=== PATIENT | female | born 1960 | race Caucasian/White ===

== ENCOUNTER 2016-06-23 19:49 | Emergency (ER) ==
[2016-06-23] MEDS ORDERED: ASPIRIN PO STA (19:54)
[2016-06-23] MEDS ORDERED: NITROGLYCERIN SL PRN (19:54)
--- NOTE | 2016-06-23 20:14 | PROVIDER DOCUMENTATION ---
HPI-Musculoskeletal Pain/Inj <Corey Ge - Last Filed: 06/23/16 21:37> - GENERAL Source: patient - HX OF PRESENT ILLNESS-MUSKULOSKELTAL Quality of Pain: reports: aching, cramping, sharp Severity in ED: moderate Onset/Duration: just prior to arrival Timing: still present, improving - TRUNK INJURY Location of Injury(s)/Pain: reports: chest, ribs Context / Method of Injury: reports: recent physical stress Associated Symptoms: reports: chest pain, shortness of breath, pain with breathing. denies: anxiety, arm pain, back/neck pain, nausea/vomiting, sensory/ motor loss <Samy Rey - Last Filed: 06/23/16 21:43> - GENERAL Chief Complaint: Rib Pain Stated Complaint: "chest pain" heard pop under left breast Time Seen by Provider: 06/23/16 20:01 - HX OF PRESENT ILLNESS-MUSKULOSKELTAL Nature of Presenting Problem: Pt is a 56 yof who presents to ER via EMS with CC of difficulty breathing, secondary to rib pain. Pt reports that she was at home, [employer] [place], bending over to take off socks when she "turned weirdly" and felt a popping sensation on the L side of her chest, and immediately developed difficulty breathing. Pt now complains of painful deep inspirations, chest tenderness on palpation (central to L side anteriorly). Pt reports hx of rheumatoid arthritis. EMS gave pt 100micrograms od fentanyl prior to arrival. (Samy Rey) Review of Systems - Adult - REVIEW OF SYSTEMS - ADULT Constitutional: denies: chills, fever, fatique, night sweats, weight gain, weight loss Eyes: reports: no symptoms reported Ears, Nose, Mouth & Throat: reports: no symptoms reported Cardiovascular: reports: chest pain. denies: edema, heart murmur, irregular heart rate, orthopnea, palpitations, poor circulation, PND, syncope Respiratory: reports: chronic cough, dyspnea on exertion, shortness of breath. denies: cough, excessive sputum production, hemoptysis, pleurisy, wheezing Gastrointestinal: reports: no symptoms reported Genitourinary: reports: no symptoms reported Musculoskeletal: reports: muscle aches. denies: bone pain, back pain, frequent leg cramps, joint pain, joint swelling, muscle weakness, neck pain Integumentary: reports: no symptoms reported Neurological: reports: slurred speech (mildly). denies: ataxia, dizziness/ vertigo, headache/migraines, loss of balance, numbness, paresthesia, seizure, syncope, tremors Psychiatric: reports: no symptoms reported Endocrine: reports: no symptoms reported Hematologic/Lymphatic: reports: no symptoms reported Allergic/Immunologic: reports: no symptoms reported All Other Systems: Reviewed and Negative <Samy Rey - Last Filed: 06/23/16 21:43> Past History - Adult - PAST MEDICAL HISTORY-ADULT Review of Records: reports: Nursing Assessment Review, Medications Reviewed - IMMUNIZATION STATUS Childhood Immunizations: See Nurse Assessment Flu Vaccine: See Nurse Assessment <Samy Rey - Last Filed: 06/23/16 21:43> Physical Exam-Injury Related - Physical Exam-Injury Related Initial Vital Signs Reviewed: Yes General Appearance: appears well, alert, mild distress, anxious, lethargic. negative: no apparent distress, moderate distress, severe distress, cachetic, obese, thin, slow to respond, obtunded, combative Respiratory: chest non-tender, lungs clear, normal breath sounds, rib tenderness (L anterior). negative: respiratory distress, decreased breath sounds, accessory muscle use, wheezing, pain on inspiration (deep inspiration) Cardiovascular: normal peripheral pulses, regular rate, rhythm. negative: bradycardia, tachycardia Chest/Breast: no masses/lumps, tenderness (L anterior chest pain on palpation). negative: no tenderness Abdominal Exam: normal bowel sounds, non tender, soft, no organomegaly, no pulsatile mass. negative: abnormal bowel sounds, distended, tenderness Back Exam: no CVA tenderness, no vertebral tenderness. negative: CVA tenderness , decreased range of motion, vertebral tenderness Extremity: normal range of motion, non-tender, normal gait. negative: deformity , erythema, inflammation, swelling, tenderness Neurologic: grossly normal, no motor/sensory deficits. negative: facial droop, focal weakness, motor weakness, sensory deficit Psych/Mental Status: normal thought content, normal thought process, oriented x 3, disheveled, depressed affect. negative: normal mood/affect <Samy Rey - Last Filed: 06/23/16 21:43> Progress - REASSESSMENT Reassessment #1 Time Reassessed: 21:37 (pt w/hx ra who came to er w/24 hrs ant natalie pain and tender ness of sternum //pt got fentanyl by ems ...upset about her pcp cut her of the norco 10 mg ...) Status: improving <Corey Ge - Last Filed: 06/23/16 21:37> - EKG 1 Time of EKG reading by physician:: 20:36 EKG Read and Signed by:: Corey Ge EKG Interpretation (*Must complete 3 of following elements*): Abnormal (Minimal voltage criteria for LVH, may be normal variant) Rate: 64 Rhythm: Sinus rhythm with PAC - XRAY 1 XRAY: Bilateral XRAY Study: Chest (COPD changes; Borderline cardiomegaly; Flat diaphragm; No obvious fx; Very small amounht of fluid in L costophrenic angle.) Impression: See EMR Report XRAY Interpretation: See report <Samy Rey - Last Filed: 06/23/16 21:43> - PLAN OF CARE/RESULTS Progress/Plan/Lab Results: POC: X-ray Vital Signs - 24 hr 06/23/16 06/23/16 20:03 21:02 Temperature 98.2 F Pulse Rate 68 85 Respiratory 16 20 Rate Blood Pressure 160/102 177/95 O2 Sat by Pulse 94 L 96 Oximetry Orders Category Date Time Status Cardiac Monitoring DIRECTED Care 06/23/16 19:54 Active Saline Loc NOW Care 06/23/16 19:54 Active CHEST-2 VIEWS [RAD] Stat Exams 06/23/16 19:54 Taken CBC WITH ELECTRONIC DIFF [HEME] Stat Lab 06/23/16 20:24 Completed CK PROFILE [SP CHEM] Stat Lab 06/23/16 20:24 Completed COMPREHENSIVE METABOLIC PANEL [CHEM] Stat Lab 06/23/16 20:24 Completed D-DIMER [CHEM] Stat Lab 06/23/16 20:24 Completed MAGNESIUM [CHEM] Stat Lab 06/23/16 20:24 Completed PRO B-NATRIURETIC PEPTIDE Stat Lab 06/23/16 20:24 Completed PROTIME WITH INR [COAG] Stat Lab 06/23/16 20:24 Completed PTT [COAG] Stat Lab 06/23/16 20:24 Completed TROPONIN T Stat Lab 06/23/16 20:24 Completed Aspirin Med 06/23/16 19:54 Discontinued 325 mg PO STAT STA Dexamethasone [Decadron] Med 06/23/16 21:41 Discontinued 10 mg IV NOW ONE Furosemide [Lasix] Med 06/23/16 20:26 Discontinued 40 mg IV NOW ONE Ketorolac [Toradol] Med 06/23/16 21:41 Discontinued 30 mg IV NOW ONE Nitroglycerin Sl [Nitroglycerin] Med 06/23/16 19:54 Active 0.4 mg SL Q5M PRN PRN Oxycodone/APAP 10 mg/325 mg [Percocet-10] Med 06/23/16 21:41 Discontinued 1 each PO NOW ONE EKG [EKG] Stat Ther 06/23/16 19:54 Ordered Laboratory Tests 06/23/16 06/23/16 06/23/16 20:24 20:24 20:24 WBC 3.33 L RBC 3.68 L Hgb 11.6 L Hct 35.9 L MCV 97.6 MCH 31.5 H MCHC 32.3 L RDW Std Deviation 15.8 H Plt Count 270 MPV 9.0 Immature Gran % (Auto) 0.0 Neut % (Auto) 44.8 Lymph % (Auto) 45.3 Roane % (Auto) 8.1 Eos % (Auto) 0.9 Baso % (Auto) 0.9 H Immature Gran # (Auto) 0.00 Neut # (Auto) 1.49 Lymph # (Auto) 1.51 Roane # (Auto) 0.27 Eos # (Auto) 0.03 Baso # (Auto) 0.03 PT INR PTT (Actin FS) D-Dimer 0.39 Sodium 139 Potassium 4.1 Chloride 100 Carbon Dioxide 28 Anion Gap 11 BUN 10 Creatinine 0.7 Estimated GFR/1.73 m2 > 60 BUN/Creatinine Ratio 14 Glucose 83 Calculated Osmolality 276 Calcium 8.7 L Magnesium 2.0 Total Bilirubin 0.40 AST 12 ALT 9 L Alkaline Phosphatase 115 H Creatine Kinase 54 Troponin T [id number] Pept Total Protein 8.2 Albumin 3.6 Globulin 4.6 Albumin/Globulin Ratio 0.8 06/23/16 06/23/16 06/23/16 20:24 20:24 20:24 WBC RBC Hgb Hct MCV MCH MCHC RDW Std Deviation Plt Count MPV Immature Gran % (Auto) Neut % (Auto) Lymph % (Auto) Roane % (Auto) Eos % (Auto) Baso % (Auto) Immature Gran # (Auto) Neut # (Auto) Lymph # (Auto) Roane # (Auto) Eos # (Auto) Baso # (Auto) PT 11.3 INR 1.07 PTT (Actin FS) 26.1 D-Dimer Sodium Potassium Chloride Carbon Dioxide Anion Gap BUN Creatinine Estimated GFR/1.73 m2 BUN/Creatinine Ratio Glucose Calculated Osmolality Calcium Magnesium Total Bilirubin AST ALT Alkaline Phosphatase Creatine Kinase Troponin T < 0.010 [id number] Pept 402 H Total Protein Albumin Globulin Albumin/Globulin Ratio (Samy Rey) Departure - Departure Time of Disposition Order: 21:39 Certified Medical Emergency: Emergent <Corey Ge - Last Filed: 06/23/16 21:37> - Departure Time of Disposition Order: 21:43 Certified Medical Emergency: Emergent <Samy Rey - Last Filed: 06/23/16 21:43> - Departure DIAGNOSIS: Anterior chest wall pain COPD (chronic obstructive pulmonary disease) Qualifiers: COPD type: unspecified COPD Qualified Code(s): J44.9 - Chronic obstructive pulmonary disease, unspecified Disposition: HOME 01 Condition: Stable Additional Instructions: ED Follow Up Instructions:see pcp for pain control You have been treated by a care provider in the Emergency Department. These instructions are being provided to you so you can have an understanding of how to care for yourself upon discharge. Upon discharge from the Emergency Department, you are responsible for making arrangements for follow-up care by a physician of your choice. Take all prescribed medications as directed. Return to the Emergency Department immediately for any new or worsening symptoms. You may call the Physician Referral phone number at [phone] to obtain a list of Physicians who are taking new patients. Prescriptions: Methylprednisolone [Medrol Dosepak] 4 mg PO DIRECTED #1 package Tramadol [Ultram] 50 mg PO TID #30 tablet Azithromycin [Zithromax Z-Timothy] 250 mg PO DIRECTED #1 pkg Referrals: Gregory Vuong MD [Primary Care Provider] - Attestation - Scribe Verification/Attestation Scribe:: Samy Rey Acting as Scribe for:: Corey Ge Scribe documention review:: This chart was documented by a scribe and accurately reflects the service the provider performed and the decisions made by the provider. <Samy Rey - Last Filed: 06/23/16 21:43> Physician Attestation
[2016-06-23] MEDS ORDERED: LASIX IV ONE (20:26)
[2016-06-23 20:35] LABS: MANUAL DIFF NEEDED? NO
[2016-06-23 20:38] LABS: BASO% 0.9 % (0.0-0.8); EOS# 0.03 X1000 (0.0-0.7); EOS% 0.9 % (0.0-10.0); HEMATOCRIT 35.9 % (37.0-47.0); HEMOGLOBIN 11.6 g/dL (12.0-16.0); LYMPH# 1.51 X1000 (1.2-3.4); LYMPH% 45.3 % (20.5-51.1); MCH 31.5 PG (27-31); MCHC 32.3 g/dL (33-37); MCV 97.6 FL (81-99); MONO# 0.27 X1000 (0.11-0.59); MONO% 8.1 % (1.7-9.3); NEUT% 44.8 % (42.2-75.2); PLT 270 X1000 (130-400); RBC 3.68 XMIL (4.2-5.4)
[2016-06-23 20:47] LABS: INR 1.07; PROTIME 11.3 Seconds (9.2-11.7); PTT 26.1 Seconds (22.0-36.0)
[2016-06-23 21:05] LABS: AGAP 11; ALBUMIN 3.6 g/dL (3.5-5.0); ALKALINE PHOSPHATASE 115 U/L (32-104); BUN 10 mg/dL (8-22); CALCIUM 8.7 mg/dL (8.8-10.2); CHLORIDE 100 mmol/L (98-107); CK PROFILE 54 U/L (24-173); COSMO 276; GOT 12 U/L (10-30); GPT 9 U/L (10-36); POTASSIUM 4.1 mmol/L (3.5-5.1); SODIUM 139 mmol/L (136-145); TCO2 28 mmol/L (25-35); TOTAL PROTEIN 8.2 g/dL (6.3-8.3)
[2016-06-23] MEDS ORDERED: PERCOCET-10 PO ONE (21:41)
[2016-06-23] MEDS ORDERED: TORADOL IV ONE (21:41)
[2016-06-23] MEDS ORDERED: DECADRON IV ONE (21:41)
--- NOTE | 2016-06-23 21:56 | Diag Imaging Result Document ---
PROCEDURE NAME: CHEST-2 VIEWS - 06/23/2016 PA AND LATERAL RADIOGRAPH OF THE CHEST: COMPARISON: 06/14/2016. FINDINGS: Right lower lobe opacity seen on the previous study appears to have improved slightly. No new consolidations are identified. Cardiac silhouette and central vasculature are unchanged. IMPRESSION: Improvement in the opacity at the right lung base as described.
[2016-06-23 22:23] VITALS: BP 148/87
--- NOTE | 2016-06-24 06:05 | EKG Report ---
Test Performed on : 06/23/2016 8:36:15 PM Test Reason : Chest Pain Blood Pressure : / mmHG Vent. Rate : 064 BPM Atrial Rate : 064 BPM P-R Int : 176 ms QRS Dur : 074 ms QT Int : 458 ms P-R-T Axes : 000 001 042 degrees QTc Int : 472 ms Sinus rhythm. with premature atrial complexes. Minimal voltage criteria for LVH, may be normal variant Borderline ECG When compared with ECG of 14-JUN-2016 11:11, premature atrial complexes. are now present Unconfirmed Result
== END 2016-06-23 22:23 | disposition home or self-care (01) ==
LOC: EDBD → EDUNIT# → ED 19:49
DX: J44.9 Chronic obstructive pulmonary disease, unspecified (principal); R07.89 Other chest pain; R94.31 Abnormal electrocardiogram [ECG] [EKG]; R07.81 Pleurodynia; R06.02 Shortness of breath; R07.1 Chest pain on breathing; R05 Cough; R06.00 Dyspnea, unspecified; R47.81 Slurred speech; R53.83 Other fatigue; M06.9 Rheumatoid arthritis, unspecified; X58.XXXA Exposure to other specified factors, initial encounter
CPT/HCPCS: 71020; 80053; 82550; 83735; 83880; 84484; 85025; 85379; 85610; 85730; 93005; J1885; J1940